=== PATIENT | female | born 1985 | race Asian ===

== ENCOUNTER → 2019-10-06 | Outpatient (CLI) | payer BC ==
[2019-10-06 08:24] LABS: BASOPHILS % 1.3 % (0.0-2.0); EOSINOPHILS % 1.8 % (0.0-5.0); HEMATOCRIT. 40.5 % (36.0-48.0); HEMOGLOBIN. 13.7 g/dL (12.0-16.0); LYMPHOCYTES % 35.4 % (20.0-50.0); MEAN CORPUSCULAR HEMOGLOBIN 29.6 pg (28.0-32.0); MEAN CORPUSCULAR VOLUME 87.5 fL (81.0-99.0); MEAN PLATELET VOLUME 8.4 fl (7.4-10.4); MONOCYTES % 6.1 % (2.0-8.0); NEUTROPHILS % 55.4 % (40.0-76.0); PLATELET 295 x1000/uL (130-400); RED BLOOD CELL COUNT 4.63 mill/uL (4.2-5.4); RED CELL DISTRIBUTION WIDTH 13.1 % (11.6-14.6)
[2019-10-06 08:42] LABS: CLARITY URINE CLOUDY (CLEAR); COLOR URINE YELLOW (YELLOW); KETONES URINE TRACE (NEGATIVE); LEUKOCYTE ESTERASE URINE 1+ (NEGATIVE); NITRITE URINE NEGATIVE (NEGATIVE); OCCULT BLOOD URINE NEGATIVE (NEGATIVE); PROTEIN URINE NEGATIVE (NEGATIVE); SPECIFIC GRAVITY URINE 1.034 (1.005-1.030); UROBILINOGEN URINE 0.2 E.U./dL (0.2-1.0)
[2019-10-06 08:52] LABS: CHLORIDE 101 mEq/L (98-107)
[2019-10-06 09:00] LABS: LDL CHOLESTEROL 149 mg/dL (5-100)
[2019-10-06 09:01] LABS: HDL CHOLESTEROL 29 mg/dL (40-59)
[2019-10-06 09:02] LABS: T4 FREE 1.27 ng/dL (0.76-1.46)
[2019-10-06 10:25] LABS: FOLIC ACID (FOLATE) SERUM 9.6 ng/mL (>5.38)
[2019-10-06 15:17] LABS: CORTISOL 7.9 ucg/dL
[2019-10-07 10:08] LABS: *CREATININE RANDOM URINE 163.1 mg/dL (Not Estab.); MICROALBUMIN RANDOM URINE 21.3 ug/mL (Not Estab.)
[2019-10-07 13:06] LABS: RF PROFILE < 10.0 IU/mL (0.0-13.9)
[2019-10-08 09:06] LABS: ESTRADIOL 32.7 pg/mL (.); FOLICLE STIMULATING HORMONE 6.4 mIU/mL (.); LUTEINIZING HORMONE 11.2 mIU/mL (.); PROLACTIN 9.7 ng/mL (4.8-23.3)
[2019-10-09 09:09] LABS: TESTOSTERONE FREE 3.3 pg/mL (0.0-4.2)
[2019-10-09 17:06] LABS: ANTI-NUCLEAR ANTIBODIES DIRECT Negative (Negative)
[2019-10-09 19:08] LABS: CCP IgG/IgA PROFILE 7 units (0-19)
[2019-10-12 17:08] LABS: METHYLMALONIC ACID 63 nmol/L (0-378)
== END | disposition home or self-care (01) ==
LOC: LAB 07:22
PROVIDERS: ATTEND Internal Medicine Endocrinology, Diabetes & Metabolism
DX: R10.9 Unspecified abdominal pain (principal)
CPT/HCPCS: 36415; 80053; 80061; 81003; 82043; 82533; 82570; 82607; 82670; 82746; 83001; 83002; 83036; 83498; 83921; 84146; 84402; 84403; 84439; 84443; 84681; 85025; 85651; 86038; 86200; 86431

== ENCOUNTER → 2020-04-18 | Outpatient (CLI) | payer BC ==
[2020-04-18 11:17] LABS: BASOPHILS % 1.4 % (0.0-2.0); EOSINOPHILS % 1.3 % (0.0-5.0); HEMATOCRIT. 41.5 % (36.0-48.0); HEMOGLOBIN. 14.4 g/dL (12.0-16.0); LYMPHOCYTES % 35.7 % (20.0-50.0); MEAN CORPUSCULAR HEMOGLOBIN 30.3 pg (28.0-32.0); MEAN CORPUSCULAR VOLUME 87.2 fL (81.0-99.0); MEAN PLATELET VOLUME 8.1 fl (7.4-10.4); MONOCYTES % 6.4 % (2.0-8.0); NEUTROPHILS % 55.2 % (40.0-76.0); PLATELET 307 x1000/uL (130-400); RED BLOOD CELL COUNT 4.76 mill/uL (4.2-5.4); RED CELL DISTRIBUTION WIDTH 13.6 % (11.6-14.6)
[2020-04-18 11:40] LABS: CHLORIDE 103 mEq/L (98-107)
[2020-04-18 11:48] LABS: LDL CHOLESTEROL 137 mg/dL (5-100)
[2020-04-18 11:49] LABS: HDL CHOLESTEROL 31 mg/dL (40-59)
[2020-04-18 13:00] LABS: HEPATITIS B SURFACE ANTIGEN NEGATIVE
[2020-04-18 13:25] LABS: HEPATITIS A AB IGM NEGATIVE (NEGATIVE)
[2020-04-20 09:11] LABS: *CREATININE RANDOM URINE 218.7 mg/dL (Not Estab.); MICROALBUMIN RANDOM URINE 37.3 ug/mL (Not Estab.)
== END | disposition home or self-care (01) ==
LOC: LAB 10:36
PROVIDERS: ATTEND Internal Medicine Endocrinology, Diabetes & Metabolism
DX: M47.815 Spondylosis without myelopathy or radiculopathy, thoracolumbar region (principal); I10 Essential (primary) hypertension; E11.9 Type 2 diabetes mellitus without complications; R94.5 Abnormal results of liver function studies
CPT/HCPCS: 36415; 72100; 72220; 80053; 80061; 82043; 82570; 83036; 84439; 84443; 85025; 86705; 86709; 86803; 87340

== ENCOUNTER → 2020-07-07 | Outpatient (CLI) | payer BC | END | disposition home or self-care (01) | LOC: LAB 07:24 → EDSTATUS 14:34 | PROVIDERS: ATTEND Internal Medicine Endocrinology, Diabetes & Metabolism | DX: Z20.828 Contact with and (suspected) exposure to other viral communicable diseases (principal) | CPT/HCPCS: C9803; U0003 ==

== ENCOUNTER → 2020-07-09 | Outpatient (CLI) | payer BC | END | disposition home or self-care (01) | LOC: US 07:44 | PROVIDERS: ATTEND Internal Medicine Endocrinology, Diabetes & Metabolism | DX: K76.0 Fatty (change of) liver, not elsewhere classified (principal); E11.65 Type 2 diabetes mellitus with hyperglycemia | CPT/HCPCS: 76700 ==